=== PATIENT | female | born 1995 | race Hispanic/Latino ===

== ENCOUNTER 2020-10-21 22:07 | Emergency (ER) | payer OTHER ==
[2020-10-21] MEDS ORDERED: KETOROLAC TROMETHAMINE 60 MG/2 ML VIAL ONE (22:30)
== END 2020-10-21 22:53 | disposition home or self-care (01) ==
LOC: EDH 22:07
DX: S93.401A Sprain of unspecified ligament of right ankle, initial encounter (principal); W01.0XXA Fall on same level from slipping, tripping and stumbling without subsequent striking against object, initial encounter; Y93.89 Activity, other specified; Y92.89 Other specified places as the place of occurrence of the external cause; Y99.8 Other external cause status
CPT/HCPCS: 73600; 96372; 99283; J1885

== ENCOUNTER 2023-01-31 19:44 | Emergency (ER) | payer BC ==
[~2023-01-31] VITALS: Ht 157.5 cm; Wt 131.5 kg
[2023-01-31 19:48] VITALS: BP 149/91
== END 2023-02-01 02:14 | disposition left against medical advice (07) ==
LOC: EDH 19:44
DX: R10.9 Unspecified abdominal pain (principal); Z53.21 Procedure and treatment not carried out due to patient leaving prior to being seen by health care provider